=== PATIENT | male | born 1970 | race African-American/Black ===

== ENCOUNTER 2016-09-21 07:27 | Emergency (ER) | payer BC ==
[2016-09-21 07:48] VITALS: BP 166/101
--- NOTE | 2016-09-21 08:04 | UC ---
Hand/Wrist HPI - HPI Summary HPI Summary: PT WAS PARTICIPATING IN A [employer] LAST NIGHT AND HAD TO REPETITIVELY HIT A BUTTON RAPIDLY FOR AN EXTENDED PERIOD OF TIME WITH HIS RIGHT HAND. ALL OF A SUDDEN HAD A SHARP PAIN AND NOW HAS PAIN DIFFUSELY OVER ENTIRE RIGHT HAND. REPORTS IT WAS SWOLLEN LAST NIGHT BUT NOW IS BETTER. HAS FULL ROM. NO NUMBNESS. PT ALSO CONCERNED ABOUT HIS TOENAILS. HAS DM AND IS WONDERING HOW TO TAKE CARE OF HIS NAILS. - History Of Current Complaint Chief Complaint: UCUpperExtremity Stated Complaint: HAND INJURY Time Seen by Provider: 09/21/16 07:51 Hx Obtained From: Patient Onset/Duration: Sudden Onset, Lasting Hours, Still Present - BUT BETTER Severity Initially: Moderate Severity Currently: Moderate Pain Intensity: 8 Pain Scale Used: 0-10 Numeric Character Of Pain: Aching Aggravating Factor(s): Movement Alleviating: Rest Associated Signs And Symptoms: Positive: Swelling. Negative: Redness, Bruising , Fever, Weakness, Numbness/Tingling Related History: Dominant Hand Right - Allergies/Home Medications Allergies/Adverse Reactions: Allergies Allergy/AdvReac Type Severity Reaction Status Date / Time No Known Allergies Allergy Verified 12/02/15 18:04 Home Medications: Home Medications Atorvastatin* [Lipitor 10 MG*] 1 tab PO DAILY 09/21/16 [History Confirmed ] Magnesium 1 tab PO DAILY 09/21/16 [History Confirmed 09/21/16] metFORMIN* [Glucophage 1000 MG TAB *] 1,000 mg PO BID 09/21/16 [History Confirmed 09/21/16] PMH/Surg Hx/FS Hx/Imm Hx Endocrine History Of: Reports: Diabetes Cardiovascular History Of: Reports: Hypertension Respiratory History Of: Denies: COPD, Asthma - Surgical History Surgical History: Yes Surgery Procedure, Year, and Place: TUBES IN EARS CHILD - Family History Known Family History: Negative: Cardiac Disease - Social History Alcohol Use: Occasionally Substance Use Type: None Smoking Status (MU): Never Smoked Tobacco - Immunization History Most Recent Influenza Vaccination: 2016 Most Recent Tetanus Shot: up to date Most Recent Pneumonia Vaccination: never had Review of Systems Constitutional: Negative Skin: Negative Respiratory: Negative Cardiovascular: Negative Gastrointestinal: Negative Musculoskeletal: Arthralgia, Edema All Other Systems Reviewed And Are Negative: Yes Physical Exam Triage Information Reviewed: Yes Appearance: Well-Appearing, No Pain Distress, Well-Nourished Vital Signs: Initial Vital Signs Temp 98.2 F 09/21/16 07:42 Pulse 75 09/21/16 07:42 Resp 18 09/21/16 07:42 BP 166/101 09/21/16 07:42 Pulse Ox 100 09/21/16 07:42 Vital Signs Reviewed: Yes Eyes: Positive: Conjunctiva Clear ENT: Positive: Hearing grossly normal Neck: Positive: Supple Respiratory: Positive: No respiratory distress, No accessory muscle use Cardiovascular: Positive: Pulses Normal - 2+ RADIAL AND DP PULSES Abdomen Description: Positive: Soft Musculoskeletal: Positive: ROM Intact, No Edema, Other: - REPORTS TENDERNESS DIFFUSELY OVER RIGHT HAND. HAS FULL ROM Neurological: Positive: Alert Psychological: Positive: Age Appropriate Behavior Skin: Negative: breakdown - SKIN ON FEET INTACT. NO INGROWN NAILS. NAILS SLIGHTLY LONG WITH ROUGH EDGES. NO TENDERNESS, ERYTHEMA OR DRAINAGE Hand/Wrist Course/Dx - Differential Dx/Diagnosis Provider Diagnoses: 1. RIGHT HAND SPRAIN. 2. NORMAL FEET Discharge - Discharge Plan Condition: Stable Disposition: HOME Patient Education Materials: Hand Sprain (ED) Forms: *Work Release Referrals: No Primary Care Phys,NOPCP [Primary Care Provider] - Additional Instructions: YOUR HAND SHOULD CONTINUE TO IMPROVE OVER THE NEXT WEEK OR SO. REST, ELEVATE. SEEK FOLLOW-UP IF NOT IMPROVING EXPECTED. YOUR FEET LOOK OKAY. NO SKIN BREAKDOWN OR INGROWN NAILS. TRIM THE NAILS ACROSS THE TOP FOR MAINTENANCE. BE SURE NOT TO CATCH YOUR SKIN. FOLLOW-UP WITH YOUR PCP AT [facility] FOR YOUR BLOOD PRESSURE.
== END 2016-09-21 08:21 | disposition home or self-care (01) ==
LOC: UCEAST 07:27
DX: S63.91XA Sprain of unspecified part of right wrist and hand, initial encounter (principal); X50.3XXA Overexertion from repetitive movements, initial encounter; Y93.89 Activity, other specified; Y92.89 Other specified places as the place of occurrence of the external cause; E11.9 Type 2 diabetes mellitus without complications; Z79.84 Long term (current) use of oral hypoglycemic drugs; I10 Essential (primary) hypertension
CPT/HCPCS: 99213; G0463

== ENCOUNTER 2017-01-17 13:36 | Emergency (ER) | payer SELFPAY ==
[2017-01-17 13:52] VITALS: BP 130/75
--- NOTE | 2017-01-17 14:39 | UC ---
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 feels like he needs a few days rest so he can recover from feeling fatigued - History of Current Complaint Chief Complaint: UCGeneralIllness Stated Complaint: NOSE BLEED Time Seen by Provider: 01/17/17 14:32 Hx Obtained From: Patient - Allergy/Home Medications Allergies/Adverse Reactions: Allergies Allergy/AdvReac Type Severity Reaction Status Date / Time No Known Allergies Allergy Verified 01/17/17 13:52 PMH/Surg Hx/FS Hx/Imm Hx Previously Healthy: Yes Endocrine History: Diabetes, Dyslipidemia Cardiovascular History: Hypertension - Surgical History Surgical History: Yes Surgery Procedure, Year, and Place: TUBES IN EARS CHILD - Family History Known Family History: Negative: Cardiac Disease, Diabetes - Social History Occupation: Employed Full-time Lives: With Family Alcohol Use: Occasionally Substance Use Type: None Smoking Status (MU): Never Smoked Tobacco - Immunization History Most Recent Influenza Vaccination: 2016 Most Recent Tetanus Shot: up to date Most Recent Pneumonia Vaccination: never had Review of Systems Constitutional: Negative Skin: Negative Eyes: Negative ENT: Epistaxis Respiratory: Negative Cardiovascular: Negative Gastrointestinal: Negative Genitourinary: Negative Motor: Negative Neurovascular: Negative Musculoskeletal: Negative Neurological: Headache Psychological: Negative All Other Systems Reviewed And Are Negative: Yes Physical Exam Triage Information Reviewed: Yes Appearance: No Pain Distress, Well-Nourished Vital Signs: Initial Vital Signs Temp 98.8 F 01/17/17 13:49 Pulse 95 01/17/17 13:49 Resp 16 01/17/17 13:49 BP 130/75 01/17/17 13:49 Pulse Ox 100 01/17/17 13:49 Vital Signs Reviewed: Yes Eyes: Positive: Conjunctiva Clear ENT: Positive: Pharynx normal, TMs normal, Other: - nares patent no signs of bleeding or signs of trauma. Negative: Nasal congestion, Nasal drainage Neck: Positive: No Lymphadenopathy Respiratory: Positive: Lungs clear, Normal breath sounds, No respiratory distress Cardiovascular: Positive: RRR, No Murmur, Pulses Normal Abdomen Description: Positive: Nontender, Soft Bowel Sounds: Positive: Present Musculoskeletal: Positive: No Edema Neurological: Positive: Alert Psychological Exam: Normal Skin Exam: Normal Course/Dx - Differential Dx - Multi-Symptom Provider Diagnoses: fatigue. HTN- controlled. epistaxis-controlled Discharge - Discharge Plan Condition: Stable Disposition: HOME Patient Education Materials: Hypertension (ED), Nosebleed (ED), Fatigue (ED) Forms: *Work Release Referrals: No Primary Care Phys,NOPCP [Primary Care Provider] - Additional Instructions: Please review your discharge instructions. If your symptoms do not improve please call your primary care provider or return to urgent care.
== END 2017-01-17 14:56 | disposition home or self-care (01) ==
LOC: UCEAST 13:36
DX: R53.83 Other fatigue (principal); R04.0 Epistaxis; E11.9 Type 2 diabetes mellitus without complications; E78.5 Hyperlipidemia, unspecified; I10 Essential (primary) hypertension
CPT/HCPCS: 99211; G0463

== ENCOUNTER 2017-08-01 19:35 | Emergency (ER) | payer BC ==
[2017-08-01 22:43] VITALS: BP 0/0
== END 2017-08-01 20:30 | disposition left against medical advice (07) ==
LOC: ED 19:35
DX: R51 Headache (principal); Z53.21 Procedure and treatment not carried out due to patient leaving prior to being seen by health care provider
CPT/HCPCS: 99281

== ENCOUNTER 2017-09-29 06:02 | Emergency (ER) | payer BC ==
[2017-09-29] MEDS ORDERED: Ibuprofen TAB* 800 MG PO ONE (06:25)
[2017-09-29] MEDS ORDERED: predniSONE TAB* 20 MG PO ONE (06:50)
--- NOTE | 2017-09-29 06:53 | ED ---
Melida Donaldson Rebecca, scribed for Ryan Treviño MD on 09/29/17 at 0614 . Complex/Multi-Sys Presentation - HPI Summary HPI Summary: Pt is a 47 y/o M who presents to ED c/o throat pain. Sx began 2 days ago, Monday night, and pain is currently severe, ranked 8/10. Denies fever. Prior strep infection a few years ago. - History Of Current Complaint Chief Complaint: EDThroatPain Time Seen by Provider: 09/29/17 06:11 Hx Obtained From: Patient Onset/Duration: Lasting Days - 2 days, Still Present Severity Currently: Severe - 8/10 Location: Pain At: - Throat Aggravating Factor(s): Nothing. Alleviating Factor(s): Nothing. Associated Signs And Symptoms: Positive: Other - Throat pain. Negative: Fever - Allergies/Home Medications Allergies/Adverse Reactions: Allergies Allergy/AdvReac Type Severity Reaction Status Date / Time No Known Allergies Allergy Verified 09/29/17 06:07 PMH/Surg Hx/FS Hx/Imm Hx Endocrine/Hematology History: Reports: Hx Diabetes Cardiovascular History: Reports: Hx Hypertension Respiratory History: Denies: Hx Asthma, Hx Chronic Obstructive Pulmonary Disease (COPD) - Surgical History Surgery Procedure, Year, and Place: TUBES IN EARS CHILD Infectious Disease History: No Infectious Disease History: Denies: Traveled Outside the [place] in Last 30 Days - Family History Known Family History: Negative: Cardiac Disease, Diabetes - Social History Alcohol Use: Occasionally Substance Use Type: Reports: None Smoking Status (MU): Never Smoked Tobacco Review of Systems Negative: Fever Positive: Sore Throat All Other Systems Reviewed And Are Negative: Yes Physical Exam - Summary Physical Exam Summary: VITAL SIGNS: Reviewed. GENERAL: ~Patient is a well-developed and nourished male who is lying comfortable in the stretcher. Patient is not in any acute respiratory distress. HEAD AND FACE: No signs of trauma. No ecchymosis, hematomas or skull depressions. No sinus tenderness. EYES: PERRLA, EOMI x 2, No injected conjunctiva, no nystagmus. EARS: Hearing grossly intact. Ear canals and tympanic membranes are within normal limits. MOUTH: Pharyngeal hyperemia with no exudate. NECK: Supple, trachea is midline, no adenopathy, no JVD, no carotid bruit, no c- spine tenderness, neck with full ROM. CHEST: Symmetric, no tenderness at palpation LUNGS: Clear to auscultation bilaterally. No wheezing or crackles. CVS: Regular rate and rhythm, S1 and S2 present, no murmurs or gallops appreciated. EXTREMITIES: FROM in all major joints, no edema, no cyanosis or clubbing. NEURO: Alert and oriented x 3. No acute neurological deficits. Speech is normal and follows commands. SKIN: Dry and warm Triage Information Reviewed: Yes Vital Signs On Initial Exam: Initial Vitals Temp Pulse Resp BP Pulse Ox 98.6 F 105 16 167/104 97 09/29/17 06:03 09/29/17 06:03 09/29/17 06:03 09/29/17 06:03 09/29/17 06:03 Vital Signs Reviewed: Yes Diagnostics - Vital Signs Vital Signs Temp Pulse Resp BP Pulse Ox 09/29/17 06:03 98.6 F 105 16 167/104 97 - Laboratory Lab Statement: Any lab studies that have been ordered have been reviewed, and results considered in the medical decision making process. Complex Multi-Symp Course/Dx Assessment/Plan: Pt is a 47 y/o M who presents to ED c/o throat pain. Sx began 2 days ago, Monday night, and pain is currently severe, ranked 8/10. Denies fever. Prior strep infection a few years ago. Group A rapid strep positive. In the ED course, pt received Ibuprofen. Pt will be D/C to home with Dx of strep and Rx for Augmentin and Motrin. He understands and agrees. - Diagnoses Provider Diagnoses: Group A streptococcal infection Discharge - Sign-Out/Discharge Documenting (check all that apply): Discharge - Discharge - Discharge Plan Condition: Stable Disposition: HOME Prescriptions: Amoxicillin/Clavulanate TAB* [Augmentin TAB 875*] 875 mg PO BID #20 tab Ibuprofen TAB* [Motrin TAB* 800 MG] 800 mg PO Q6H PRN #30 tab PRN Reason: Pain Patient Education Materials: Strep Throat (ED) Referrals: [facility] [Outside] - 3 Days Additional Instructions: RETURN TO EMERGENCY DEPARTMENT FOR ANY NEW OR WORSENING SYMPTOMS The documentation as recorded by the Melida irby Rebecca accurately reflects the service I personally performed and the decisions made by , Ryan Treviño MD.
[2017-09-29 07:31] VITALS: BP 162/98
[2017-09-29] MEDS ORDERED: Amoxicillin/Clavulanate TAB* 875 MG PO SCH (09:00)
== END 2017-09-29 07:30 | disposition home or self-care (01) ==
LOC: ED 06:02
DX: J02.0 Streptococcal pharyngitis (principal)
CPT/HCPCS: 87651; 99283; A9270-GY; J7512

== ENCOUNTER 2019-06-19 05:04 | Emergency (ER) | payer BC ==
--- NOTE | 2019-06-19 05:22 | ED ---
Complex/Multi-Sys Presentation - HPI Summary HPI Summary: 49 y/o male presented to [facility] complaining of difficulty breathing after waking up. He claims to have fallen asleep feeling fine while watching sports and woke up with swelling that he felt made breathing difficult. He states that he is thirsty and feels like he can't swallow. He feels no pain and has no sore throat. Pt has a Hx of diabetes and HTN. Medications reviewed. - History Of Current Complaint Chief Complaint: EDThroatPain Time Seen by Provider: 06/19/19 05:10 Hx Obtained From: Patient Onset/Duration: Sudden Onset Timing: Constant Associated Signs And Symptoms: Positive: SOB, Edema, Other - thirst Related History: Other - reaction to medication - Allergies/Home Medications Allergies/Adverse Reactions: Allergies Allergy/AdvReac Type Severity Reaction Status Date / Time No Known Allergies Allergy Verified 06/19/19 05:08 PMH/Surg Hx/FS Hx/Imm Hx Endocrine/Hematology History: Reports: Hx Diabetes Cardiovascular History: Reports: Hx Hypertension Respiratory History: Denies: Hx Asthma, Hx Chronic Obstructive Pulmonary Disease (COPD) - Surgical History Surgery Procedure, Year, and Place: TUBES IN EARS CHILD Infectious Disease History: No Infectious Disease History: Denies: Traveled Outside the [place] in Last 30 Days - Family History Known Family History: Negative: Cardiac Disease, Diabetes - Social History Alcohol Use: Occasionally Substance Use Type: Reports: None Smoking Status (MU): Never Smoked Tobacco Review of Systems Positive: Other - difficulty swallowing. Negative: Sore Throat Positive: Other - difficulty breathing. Negative: Cough All Other Systems Reviewed And Are Negative: Yes Physical Exam - Summary Physical Exam Summary: Appearance: Well-appearing, Well-nourished, lying in bed comfortably Skin: Warm, dry, no obvious rash Eyes: sclera anicteric, no conjunctival pallor ENT: mucous membranes moist; swollen, boggy appearing uvula, tongue not swollen , no apparent airway impingement Neck: Supple, nontender Respiratory: Clear to auscultation, no signs of respiratory distress Cardiovascular: Normal S1, S2. No murmurs. Normal distal pulses in tibial and radial bilaterally. Abdomen: Soft, nontender, normal active bowel sounds present Musculoskeletal: Normal, Strength/ROM Intact Neurological: A&Ox3, awake and alert, mentation is normal, speech is fluent and appropriate Psychiatric: affect is normal, does not appear anxious or depressed Triage Information Reviewed: Yes Vital Signs On Initial Exam: Initial Vitals Temp Pulse Resp BP Pulse Ox 98.2 F 111 22 181/106 96 06/19/19 05:05 06/19/19 05:05 06/19/19 05:05 06/19/19 05:05 06/19/19 05:05 Vital Signs Reviewed: Yes Procedures - Sedation Patient Received Moderate/Deep Sedation with Procedure: No Diagnostics - Vital Signs Vital Signs Temp Pulse Resp BP Pulse Ox 06/19/19 05:05 98.2 F 111 22 181/106 96 - Laboratory Result Diagrams: 06/19/19 05:42 06/19/19 05:42 Lab Statement: Any lab studies that have been ordered have been reviewed, and results considered in the medical decision making process. Complex Multi-Symp Course/Dx Course Of Treatment: 49 y/o male presented to [facility] complaining of difficulty breathing after waking up. He claims to have fallen asleep feeling fine while watching sports and woke up with swelling that he felt made breathing difficult. He states that he is thirsty and feels like he can't swallow. He feels no pain and has no sore throat. Exam showed uvular swelling but no apparent impingement of the airway. Bloodwork showed Hgb L, Hct L, Na L, K L, BUN/creatinine ratio H, and glucose H. Pt was diagnosed with angioedema. Pt is signed out to Dr. Diaz at 0700 shift change pending discharge after plasma. - Diagnoses Provider Diagnoses: Angioedema Discharge ED - Sign-Out/Discharge Documenting (check all that apply): Sign-Out Patient Signing out patient TO: Jim Diaz - Pt is signed out to Dr. Diaz at 0700 shift change pending discharge after plasma. Receiving patient FROM: Storm Brewster - Discharge Plan Condition: Good Disposition: HOME Prescriptions: diPHENhydraMINE PO* [Benadryl PO 25 MG TAB*] 25 mg PO TID PRN #30 tab PRN Reason: Allergy Symptoms Famotidine TAB* [Pepcid 20 MG TAB*] 20 mg PO DAILY #10 tab predniSONE [Prednisone 20 MG TAB] 20 mg PO DAILY #10 tablet Patient Education Materials: Angioedema (ED) Forms: *Work Release Referrals: Navdeep Rushing MD [Primary Care Provider] - Additional Instructions: Check your medication and do not take any more lisinopril. The swelling should completely resolve within a day or two. You will need to check in with your doctor within a week to see about a different blood pressure medication. - Billing Disposition and Condition Condition: GOOD Disposition: Home - Attestation Statements Document Initiated by dE: Yes Documenting Scribe: Akash Bonilla Provider For Whom Ed is Documenting (Include Credential): Storm Brewster MD Scribe Attestation: Akash Donaldson, adalidibed for Storm Brewster MD on 06/21/19 at 0112. Scribe Documentation Reviewed: Yes Provider Attestation: The documentation as recorded by the Akash irby accurately reflects the service I personally performed and the decisions made by Storm mars MD Status of Scribe Document: Viewed
[2019-06-19] MEDS ORDERED: Tranexamic Acid 1,000 MG/10 ML 1,000 MG in NS 0.9% 50 ML* 50 ML IV ONE (05:27)
--- OUTSIDE RECORDS SUMMARY | 2019-06-19 05:44 | XMS REPORT | Continuity of Care Document ---
:1970 External Reference #:[id number] Author Name DL Marcelino Address [address] [place] [address] Problems Description No Information Available Social History Type Date Description Comments Sex Unknown Allergies, Adverse Reactions, Alerts Active Allergies Reaction Severity Comments Date HCTZ Hypomagnesemia 05/2702/15/2019 Medications Active Medications SIG Qnty Indications Ordering Provider Date Amoxicillin 1 tab by mouth 20caps K08.89 DL Marcelino 04/25/2019 500mg twice a day Capsules Metformin HCL Oral; Take 1 180tabs Unknown 02/01/2019 1000mg Tablet By Mouth Tablets Twice A Day Metoprolol Succinate Oral; Take 1 90tabs Unknown 10/30/2018 ER Tablet By Mouth 25mg Tablets ER 24HR Every Day Nifedipine ER Osmotic Oral; Take 2 180tabs Unknown 10/30/2018 Release Tablets By Mouth 60mg Tablets ER Every Day 24HR Lisinopril Oral; Take 1 90tabs Unknown 07/26/2018 40mg Tablets Tablet By Mouth Every Day Atorvastatin Calcium Oral; Take 1 90tabs Unknown 10/02/2017 Tablet By Mouth 20mg Tablets Every Day Automatic Blood 1 N/A Unknown 01/14/2016 Pressure Monitor Device Aspirin 1 daily Oral 90tabs Unknown 05/18/[address] David Neff N/A Unknown 05/06/2015 Lancets Fine 30G 30G Misc Onetouch Ultra Blue In vitro Unknown 05/06/2015 Strips Onetouch Ultra Mini N/A Unknown 05/06/2015 w/Device Kit Medications Administered in Office Medication SIG Qnty Indications Ordering Provider Date TB Intradermal Test Unknown 04/06/2016 Injection Immunizations CPT Code Status Date Vaccine Lot # [id number] Given 07/06/2018 Hepatitis B >=20 yrs, Energix or Recombivax 97054 Given 07/06/2018 Influenza Virus Vaccine, Quadrivalent, Split, Im Use 0.25ML 46291 Given 07/06/2018 Influenza Virus Vaccine, Quadrivalent, Split, Im Use 0.25ML 81132 Given 07/06/2018 Influenza Virus Vaccine, Quadrivalent, Split, Im Use 0.25ML 33989 Given 07/06/2018 Flu < 65 years 61507 Given 07/06/2018 Influenza Virus Vaccine, Quadrivalent, Split, Preservative Free 85199 Given 07/06/2018 Flumist 17515 Given 07/06/2018 Flu High Dose 60170 Given 07/06/2018 Influenza Virus Vaccine, Split, Preserv Free, Intradermal Use 01283 Given 10/13/2015 Pneumovax - for >=2years - PPSV23 99564 Given 07/28/2015 Flumist 85294 Given 07/28/2015 Flu High Dose 59499 Given 07/28/2015 Influenza Virus Vaccine, Quadrivalent, Split, Preservative Free 32619 Given 07/28/2015 Flu < 65 years 61619 Given 07/28/2015 Influenza Virus Vaccine, Quadrivalent, Split Virus, Im Use 0.5ML 27364 Given 07/28/2015 Tdap - Boostrix/Adacel 47369 Refused 08/10/2017 Influenza Virus Vaccine, Quadrivalent, Split, Im Use 0.25ML 17138 Refused 07/14/2017 Influenza Virus Vaccine, Quadrivalent, Split, Im Use 0.25ML 78953 Refused 07/11/2017 Influenza Virus Vaccine, Quadrivalent, Split, Im Use 0.25ML [id number] Refused 06/14/2017 Influenza Virus Vaccine, Quadrivalent, Split, Im Use 0.25ML 88834 Refused 06/08/2017 Influenza Virus Vaccine, Quadrivalent, Split, Im Use 0.25ML Vital Signs Date Vital Result Comment 04/25/2019 12:05pm BP Systolic 144 mmHg BP Diastolic 98 mmHg Height 67.5 inches 5'7.50" Weight 232.00 lb Heart Rate 81 /min Body Temperature 98.0 F O2 % BldC Oximetry 99 % BMI (Body Mass Index) 35.8 kg/m2 09/20/2018 2:27pm BP Systolic 122 mmHg Height 66.50 inches 5'6.50" Weight 211.00 lb Heart Rate 84 /min Body Temperature 97.8 F O2 % BldC Oximetry 99 % BMI (Body Mass Index) 33.55 kg/m2 Results Description No Information Available Procedures Description No Information Available Medical Devices Description No Information Available Encounters Type Date Location Provider Dx Diagnosis Office Visit 04/25/2019 12:00p [facility] DL Marcelino K08.89 Other specified disorders of teeth and supporting structures Assessments Date Code Description Provider 04/25/2019 K08.89 Other specified disorders of teeth and supporting DL Marcelino structures Plan of Treatment Future Appointment(s):05/08/2019 9:15 am - DL Villa at [facility] - DL MarcelinoK08.89 Other specified disorders of teeth and supporting structuresNew Medication:Amoxicillin 500 mg - 1 tab by mouth twice a dayComments :Rec. mouth rinses, water pick and visit to the Dentist as disc.Tylenol PRN for pain. If no improvement could try NSAIDs. Antibiotic Rx SE reviewed. Return to office if worsening or no improvement with above. Functional Status Description No Information Available Mental Status Description No Information Available Referrals Description No Information Available
[2019-06-19 05:47] LABS: ABS Basophils 0.1 10^3/ul (0-0.2); ABS Eosinophils 0.1 10^3/ul (0-0.6); ABS Lymphocytes 3.5 10^3/ul (1.0-4.8); ABS Monocytes 0.7 10^3/ul (0-0.8); ABS Neutrophils 4.2 10^3/ul (1.5-7.7); Eosinophil % 1.7 %; Hematocrit 40 % (42-52); Hemoglobin 13.5 g/dL (14.0-18.0); Mean Corpuscular HGB Conc 34 g/dL (31-36); Mean Corpuscular Hemoglobin 29 pg (27-31); Mean Corpuscular Volume 83 fL (80-94); Mean Platelet Volume 7.6 fL (7.4-10.4); Platelet Count 338 10^3/uL (150-450); Red Blood Count 4.75 10^6 /uL (4.18-5.48); Red Cell Distribution Width 14 % (10-15); White Blood Count 8.6 10^3/uL (3.5-10.8)
[2019-06-19 06:04] LABS: Albumin 3.9 g/dL (3.2-5.2); Albumin/Globulin Ratio 1.3 (1-3); BUN/Creatinine Ratio 20.8 (8-20); EGFR African American 129.9 (>60); EGFR Non-African American 107.4 (>60); Globulin 2.9 g/dL (2-4); Potassium 3.4 mmol/L (3.5-5.0); Total Bilirubin 0.5 mg/dL (0.2-1.0); Total Protein 6.8 g/dL (6.4-8.9)
--- NOTE | 2019-06-19 07:10 | ED ---
Progress - Progress Note Progress Note: Patient is a sign-out at 07:00 on 06/19/[address] Storm Brewster MD to Dr. Jim Diaz MD at shift change, pending further workup and disposition. At 07:54, patient is still concerned about his throat swelling and receiving a plasma transfusion. The risks and benefits of transfusion was discussed with the patient. At this time, patient declines the transfusion. His throat has improved since initial onset of swelling. Patient will be discharged with a diagnosis of angioedema. Follow up with PCP within 3 days. Re-Evaluation - Re-Evaluation First Eval Re-Evaluation Time: 07:54 Change: Improved Comment: At 07:54, patient is still concerned about his throat swelling and receiving a plasma transfusion. The risks and benefits of transfusion was discussed with the patient. At this time, patient declines the transfusion. His throat has improved since initial onset of swelling. Course/Dx - Course Course Of Treatment: This patient was signed out from Dr. Posada at shift change. He reports that the patient has a flareup of his angioedema. Dr. Posada ordered FFP and tranexamic acid. Patient declined plasma transfusion. The patient reports that at this time he is feeling better and he wants to be discharged home. Therefore, since the patient doesn't have any airway compromise , any hoarse or muffled voice, and because he is feeling better, he will be discharged home with a prescription for Benadryl, prednisone and Pepcid. He declined an EpiPen. Patient is hemodynamically stable. - Diagnoses Provider Diagnoses: Angioedema Discharge ED - Sign-Out/Discharge Documenting (check all that apply): Patient Departure - Discharge, Receiving Sign-Out Receiving patient FROM: Storm Brewster - Patient is a sign-out at 07:00 on 06/[address] Storm Brewster MD to Dr. Jim Diaz MD at shift change, pending further workup and disposition. - Discharge Plan Condition: Good Disposition: HOME Prescriptions: diPHENhydraMINE PO* [Benadryl PO 25 MG TAB*] 25 mg PO TID PRN #30 tab PRN Reason: Allergy Symptoms Famotidine TAB* [Pepcid 20 MG TAB*] 20 mg PO DAILY #10 tab predniSONE [Prednisone 20 MG TAB] 20 mg PO DAILY #10 tablet Patient Education Materials: Angioedema (ED) Forms: *Work Release Referrals: Navdeep Rushing MD [Primary Care Provider] - Additional Instructions: Check your medication and do not take any more lisinopril. The swelling should completely resolve within a day or two. You will need to check in with your doctor within a week to see about a different blood pressure medication. - Billing Disposition and Condition Condition: GOOD Disposition: Home - Attestation Statements Document Initiated by Ibethibe: Yes Documenting Scribe: Ivana Jackson Provider For Whom dE is Documenting (Include Credential): Jim Diaz MD Scribe Attestation: Ivana Donaldson, scribed for Jim Diaz MD on 06/19/19 at 1832. Scribe Documentation Reviewed: Yes Provider Attestation: The documentation as recorded by the Ivana irby accurately reflects the service I personally performed and the decisions made by , Jim Diaz MD Status of Scribe Document: Viewed
[2019-06-19 09:00] VITALS: BP 139/100
== END 2019-06-19 08:44 | disposition home or self-care (01) ==
LOC: ED 05:04
DX: T78.3XXA Angioneurotic edema, initial encounter (principal); E11.9 Type 2 diabetes mellitus without complications; I10 Essential (primary) hypertension
CPT/HCPCS: 36415; 80053; 85025; 86850; 86900; 86901; 96374; 99282

== ENCOUNTER 2019-08-20 11:03 | Emergency (ER) | payer BC ==
--- OUTSIDE RECORDS SUMMARY | 2019-08-20 11:18 | XMS REPORT | Continuity of Care Document ---
:1970 External Reference #:[id number] Author Name Hilda Mcdowell DO Address [address] [place] [address] Problems Active Problems Provider Date Essential hypertension Onset: 09/20/2018 Type 2 diabetes mellitus without complication Onset: 07/06/2018 Social History Type Date Description Comments Sex Unknown Tobacco Use Start: Unknown Patient has never smoked Smoking Status Reviewed: 07/12/19 Patient has never smoked Allergies, Adverse Reactions, Alerts Active Allergies Reaction Severity Comments Date HCTZ Hypomagnesemia 05/2702/15/2019 Lisinopril Swelling throat Severe 06/20/2019 Medications Active Medications SIG Qnty Indications Ordering Provider Date Epipen 2-[place] use one as 2units Hilda Mcdowell, 06/20/2019 needed, as DO 0.3mg/0.3ML Solution directed Auto-Inject Losartan Potassium 1 tabs daily 90tabs Hilda Alvarezbulmaro, 06/20/2019 50mg oral DO Tablets Metformin HCL Oral; Take 1 180tabs Unknown 02/01/2019 1000mg Tablet By Mouth Tablets Twice A Day Metoprolol Succinate Oral; Take 1 90tabs Unknown 10/30/2018 ER Tablet By Mouth 25mg Tablets ER 24HR Every Day Nifedipine ER Osmotic oral; take 2 180tabs Hilda Mcdowell, 10/30/2018 Release tablets by mouth DO 60mg Tablets ER every day 24HR Atorvastatin Calcium Oral; Take 1 90tabs Unknown 10/02/2017 Tablet By Mouth 20mg Tablets Every Day Automatic Blood 1 N/A Unknown 01/14/2016 Pressure Monitor Device Aspirin 1 daily Oral 90tabs Unknown 05/18/[address] David Neff N/A Unknown 05/06/2015 Lancets Fine 30G 30G Misc Onetouch Ultra Blue In vitro Unknown 05/06/2015 Strips Onetouch Ultra Mini N/A Unknown 05/06/2015 w/Device Kit Glipizide 1 by mouth every Unknown 5mg Tablets day [facility] Allergy Relief Unknown 25mg Capsules Famotidine Unknown 20mg Tablets Prednisone Unknown 10mg Tablets History Medications Amoxicillin 1 tab by mouth 20caps K08.89 Lula Whitley, [employer] 04/25/2019 - 500mg twice a day 06/19/2019 Capsules Medications Administered in Office Medication SIG Qnty Indications Ordering Provider Date TB Intradermal Test Unknown 04/06/2016 Injection Immunizations CPT Code Status Date Vaccine Lot # [id number] Given 07/06/2018 Hepatitis B >=20 yrs, Energix or Recombivax 25136 Given 07/06/2018 Flu < 65 years 95038 Given 10/13/2015 Pneumovax - for >=2years - PPSV23 76306 Given 07/28/2015 Tdap - Boostrix/Adacel 60169 Given 07/28/2015 Flu < 65 years 54265 Refused 08/10/2017 Influenza Virus Vaccine, Quadrivalent, Split, Im Use 0.25ML [id number] Refused 07/14/2017 Influenza Virus Vaccine, Quadrivalent, Split, Im Use 0.25ML [id number] Refused 07/11/2017 Influenza Virus Vaccine, Quadrivalent, Split, Im Use 0.25ML 38904 Refused 06/14/2017 Influenza Virus Vaccine, Quadrivalent, Split, Im Use 0.25ML [id number] Refused 06/08/2017 Influenza Virus Vaccine, Quadrivalent, Split, Im Use 0.25ML Vital Signs Date Vital Result Comment 07/12/2019 12:06pm BP Systolic 142 mmHg BP Diastolic 84 mmHg Heart Rate 93 /min Body Temperature 98.5 F O2 % BldC Oximetry 99 % 06/21/2019 2:13pm BP Systolic 146 mmHg BP Diastolic 90 mmHg BP Systolic Recheck 132 mmHg BP Diastolic Recheck 86 mmHg Results Test Acquired Date Facility Test Result H/L Range Note Abo/RH Type 06/19/2019 [facility] Patient Blood O Positive [address] [place] [address] [phone] CBC Auto 06/19/2019 [facility] White Blood 8.6 10^3/uL Normal 3.5-10.[address] [place] [address] [phone] Red Blood Count 4.75 10^6/uL Normal 4.18-5.48 Hemoglobin 13.5 g/dL Low 14.0-18.0 Hematocrit 40 % Low 42-52 Mean Corpuscular Volume 83 fL Normal 80-94 Mean Corpuscular Hemoglobin 29 pg Normal 27-31 Mean Corpuscular HGB Conc 34 g/dL Normal 31-36 Red Cell Distribution Width 14 % Normal 10-15 Platelet Count 338 10^3/uL Normal 150-450 Mean Platelet Volume 7.6 fL Normal 7.4-10.4 Abs Neutrophils 4.2 10^3/uL Normal 1.5-7.7 Abs Lymphocytes 3.5 10^3/uL Normal 1.0-4.8 Abs Monocytes 0.7 10^3/uL Normal 0-0.8 Abs Eosinophils 0.1 10^3/uL Normal 0-0.6 Abs Basophils 0.1 10^3/uL Normal 0-0.2 Abs Nucleated RBC 0.0 10^3/uL Granulocyte % 48.5 % Lymphocyte % 41.0 % Monocyte % 7.7 % Eosinophil % 1.7 % Basophil % 1.1 % Nucleated Red Blood Cells % 0.0 Comp Metabolic Panel 06/19/2019 [facility] Sodium 134 mmol/L Low 135-[address] [place] [address] [phone] Potassium 3.4 mmol/L Low 3.5-5.0 Chloride 101 mmol/L Normal 101-111 Co2 Carbon Dioxide 24 mmol/L Normal 22-32 Anion Gap 9 mmol/L Normal 2-11 Glucose 260 mg/dL High 70-100 Blood Urea Nitrogen 16 mg/dL Normal 6-24 Creatinine 0.77 mg/dL Normal 0.67-1.17 BUN/Creatinine Ratio 20.8 High 8-20 Calcium 9.0 mg/dL Normal 8.6-10.3 Total Protein 6.8 g/dL Normal 6.4-8.9 Albumin 3.9 g/dL Normal 3.2-5.2 Globulin 2.9 g/dL Normal 2-4 Albumin/Globulin Ratio 1.3 Normal 1-3 Total Bilirubin 0.50 mg/dL Normal 0.2-1.0 Alkaline Phosphatase 48 U/L Normal 34-104 Alt 37 U/L Normal 7-52 Ast 16 U/L Normal 13-39 Egfr Non- 107.4 >60 Egfr 129.9 >60 2 Type & Screen 06/19/2019 [facility] Patient Blood Type O Positive [address] [place] [address] [phone] Antibody Screen NEGATIVE 1 SOB PER PT 2 Because ethnic data is not always readily available, this report includes an eGFR for both -Americans and non- Americans. The National Kidney Disease Education Program (NKDEP) does not endorse the use of the MDRD equation for patients that are not between the ages of 18 and 70, are , have extremes of body size, muscle mass, or nutritional status, or are non- or non-. According to the National Kidney Foundation, irrespective of diagnosis, the stage of the disease is based on the level of kidney function: Stage Description GFR(mL/min/1.73 m(2)) 1 Kidney damage with normal or decreased GFR 90 2 Kidney damage with mild decrease in GFR 60-89 3 Moderate decrease in GFR 30-59 4 Severe decrease in GFR 15-29 5 Kidney failure <15 (or dialysis) Procedures Description No Information Available Medical Devices Description No Information Available Encounters Type Date Location Provider Dx Diagnosis Office Visit 07/12/2019 [facility] Hilda Mcdowell, DO I10 Essential ( primary) 12:00p hypertension D64.9 Anemia, unspecified Office Visit 06/21/2019 2:15p [facility] Nurse I10 Essential (primary) hypertension Office Visit 06/20/2019 9:30a [facility] Hilda T78.3xxD Angioneurotic edema, Fern[place]ow, DO subsequent encounter I10 Essential (primary) hypertension D64.9 Anemia, unspecified Office Visit 04/25/2019 12:00p [facility] Lula Whitley, [employer] OFFICER K08.89 Other specified disorders of teeth and supporting structures Assessments Date Code Description Provider 07/12/2019 I10 Essential (primary) hypertension Hilda Mcdowell, DO 07/12/2019 D64.9 Anemia, unspecified Hilda Kimw, DO 06/21/2019 I10 Essential (primary) hypertension Nurse 06/20/2019 T78.3xxD Angioneurotic edema, subsequent encounter Hilda Mcdowell, DO 06/20/2019 I10 Essential (primary) hypertension Hilda Alvarezw, DO 06/20/2019 D64.9 Anemia, unspecified Hilda Mcdowell, DO 04/25/2019 K08.89 Other specified disorders of teeth and DL Marcelino supporting structures Plan of Treatment Future Appointment(s):10/11/2019 11:45 am - Hilda Karmikayla, DO at [facility] - Hilda Isaacsmikayla, DOI10 Essential (primary) hypertensionComments: Better controlled with the addition of LosartanWe could push the dose even further but he is also making lifestyle changes and so we will wait a few months to see how things go Encouraged continue healthy lifestyle changes3 month follow up, sooner if [id number] Anemia, unspecifiedComments:Very mild anemia - present back in 2016 as well No symptomsWill recheck in a month and if remains low, then we need to pursue further work up - he will be due for colonoscopy this summer, so may consider sending him early Functional Status Description No Information Available Mental Status Description No Information Available Referrals Description No Information Available
[2019-08-20 12:11] LABS: ABS Basophils 0.1 10^3/ul (0-0.2); ABS Eosinophils 0.1 10^3/ul (0-0.6); ABS Lymphocytes 3.3 10^3/ul (1.0-4.8); ABS Monocytes 0.7 10^3/ul (0-0.8); ABS Neutrophils 5.3 10^3/ul (1.5-7.7); Eosinophil % 1.1 %; Hematocrit 40 % (42-52); Hemoglobin 13.7 g/dL (14.0-18.0); Lymphocyte % 35.1 %; Mean Corpuscular HGB Conc 34 g/dL (31-36); Mean Corpuscular Hemoglobin 28 pg (27-31); Mean Corpuscular Volume 81 fL (80-94); Nucleated Red Blood Cells % 0.1; Platelet Count 374 10^3/uL (150-450); Red Blood Count 4.91 10^6 /uL (4.18-5.48); Red Cell Distribution Width 13 % (10-15); White Blood Count 9.5 10^3/uL (3.5-10.8)
[2019-08-20 12:23] LABS: Albumin 4.2 g/dL (3.2-5.2); Albumin/Globulin Ratio 1.4 (1-3); BUN/Creatinine Ratio 23.2 (8-20); Calcium 9.7 mg/dL (8.6-10.3); EGFR African American 120.8 (>60); EGFR Non-African American 99.9 (>60); Globulin 3.1 g/dL (2-4); Total Bilirubin 0.4 mg/dL (0.2-1.0); Total Protein 7.3 g/dL (6.4-8.9)
[2019-08-20] MEDS ORDERED: amLODIPine TAB* 5 MG PO ONE (12:40)
[2019-08-20 12:56] LABS: Potassium 4.2 mmol/L (3.5-5.0)
--- NOTE | 2019-08-20 12:57 | ED ---
Hypertension - HPI Summary HPI Summary: 49 year old M presenting to [facility] with a chief complaint of hypertension since earlier today. Patient reports epistaxis earlier today and that when his blood pressure was checked it was elevated. The patient rates the pain 0/10 in severity. Symptoms aggravated by nothing. Symptoms alleviated by nothing. The patient states that he had not taken his blood pressure medication for two days and was eating a lot of salt. He took his Metoprolol today at 07:30. Medication list reviewed. Allergy list reviewed. - History of Current Complaint Chief Complaint: EDHypertension Stated Complaint: HIGH BLOOD PRESSURE PER PT Time Seen by Provider: 08/20/19 12:39 Hx Obtained From: Patient Timing: Constant Aggravating Factor(s): Nothing Alleviating Factor(s): Nothing Associated Signs & Symptoms: Other: - Epistaxis - Allergies/Home Medications Allergies/Adverse Reactions: Allergies Allergy/AdvReac Type Severity Reaction Status Date / Time No Known Allergies Allergy Verified 06/19/19 05:08 Home Medications: Home Medications Hydrochlorothiazide TAB* [Hydrodiuril TAB*] 25 mg PO DAILY 05/15/12 [History Confirmed 09/29/17] Atorvastatin* [Lipitor 10 MG*] 1 tab PO DAILY 09/21/16 [History Confirmed ] Magnesium 1 tab PO DAILY 09/21/16 [History Confirmed 09/29/17] metFORMIN* [Glucophage 1000 MG TAB *] 1,000 mg PO BID #14 tab 04/22/17 [Rx Confirmed 09/29/17] Amoxicillin/Clavulanate TAB* [Augmentin TAB 875*] 875 mg PO BID #20 tab [Rx] Ibuprofen TAB* [Motrin TAB* 800 MG] 800 mg PO Q6H PRN #30 tab 09/29/17 [Rx] Famotidine TAB* [Pepcid 20 MG TAB*] 20 mg PO DAILY #10 tab 06/19/19 [Rx] diPHENhydraMINE PO* [Benadryl PO 25 MG TAB*] 25 mg PO TID PRN #30 tab 06/19/19 [ Rx] predniSONE [Prednisone 20 MG TAB] 20 mg PO DAILY #10 tablet 06/19/19 [Rx] PMH/Surg Hx/FS Hx/Imm Hx Endocrine/Hematology History: Reports: Hx Diabetes Cardiovascular History: Reports: Hx Hypertension Respiratory History: Denies: Hx Asthma, Hx Chronic Obstructive Pulmonary Disease (COPD) - Surgical History Surgery Procedure, Year, and Place: TUBES IN EARS CHILD Infectious Disease History: No Infectious Disease History: Denies: Traveled Outside the [place] in Last 30 Days - Family History Known Family History: Negative: Cardiac Disease, Diabetes - Social History Alcohol Use: Occasionally Substance Use Type: Reports: None Smoking Status (MU): Never Smoked Tobacco Review of Systems Positive: Epistaxis Positive: Other - Hypertension All Other Systems Reviewed And Are Negative: Yes Physical Exam - Summary Physical Exam Summary: Constitutional: Well-developed, Well-nourished, Alert. (-) Distressed Skin: Warm, Dry HENT: Normocephalic; Atraumatic Eyes: Conjunctiva normal Neck: Musculoskeletal ROM normal neck. (-) JVD, (-) Stridor, (-) Nuchal rigidity Cardio: Rhythm regular, rate normal, Heart sounds normal; Intact distal pulses; Radial pulses are 2+ and symmetric. (-) Murmur Pulmonary/Chest wall: Effort normal. (-) Respiratory distress, (-) Wheezes, (-) Rales Abd: Soft, (-) tenderness, (-) Distension, (-) Guarding, (-) Rebound Musculoskeletal: (-) Edema Lymph: (-) Cervical adenopathy Neuro: Alert, Oriented x3 Psych: Mood and affect Normal Triage Information Reviewed: Yes Vital Signs On Initial Exam: Initial Vitals Temp Pulse Resp BP Pulse Ox 98.1 F 90 16 201/111 98 08/20/19 11:05 08/20/19 11:05 08/20/19 11:05 08/20/19 11:05 08/20/19 11:05 Vital Signs Reviewed: Yes Procedures - Sedation Patient Received Moderate/Deep Sedation with Procedure: No Diagnostics - Vital Signs Vital Signs Temp Pulse Resp BP Pulse Ox 08/20/19 12:00 98.0 F 78 16 178/111 99 08/20/19 11:05 98.1 F 90 16 201/111 98 - Laboratory Lab Results: Lab Results 08/20/19 08/20/19 Range/Units 11:51 11:51 WBC 9.5 (3.5-10.8) 10^3/uL RBC 4.91 (4.18-5.48) 10^6 /uL Hgb 13.7 L (14.0-18.0) g/dL Hct 40 L (42-52) % MCV 81 (80-94) fL MCH 28 (27-31) pg MCHC 34 (31-36) g/dL RDW 13 (10-15) % Plt Count 374 (150-450) 10^3/uL MPV 8.0 (7.4-10.4) fL Neut % (Auto) 56.0 % Lymph % (Auto) 35.1 % [place] % (Auto) 7.0 % Eos % (Auto) 1.1 % Baso % (Auto) 0.8 % Absolute Neuts (auto) 5.3 (1.5-7.7) 10^3/ul Absolute Lymphs (auto) 3.3 (1.0-4.8) 10^3/ul Absolute Monos (auto) 0.7 (0-0.8) 10^3/ul Absolute Eos (auto) 0.1 (0-0.6) 10^3/ul Absolute Basos (auto) 0.1 (0-0.2) 10^3/ul Absolute Nucleated RBC 0.0 10^3/ul Nucleated RBC % 0.1 Sodium 135 (135-145) mmol/L Potassium Pending Chloride 101 (101-111) mmol/L Carbon Dioxide 26 (22-32) mmol/L Anion Gap Pending BUN 19 (6-24) mg/dL Creatinine 0.82 (0.67-1.17) mg/dL Est GFR ( Amer) 120.8 (>60) Est GFR (Non-Af Amer) 99.9 (>60) BUN/Creatinine Ratio 23.2 H (8-20) Glucose 248 H (70-100) mg/dL Calcium 9.7 (8.6-10.3) mg/dL Total Bilirubin 0.40 (0.2-1.0) mg/dL AST Pending ALT 51 (7-52) U/L Alkaline Phosphatase 53 (34-104) U/L Total Protein 7.3 (6.4-8.9) g/dL Albumin 4.2 (3.2-5.2) g/dL Globulin 3.1 (2-4) g/dL Albumin/Globulin Ratio 1.4 (1-3) Result Diagrams: 08/20/19 11:51 08/20/19 11:51 Lab Statement: Any lab studies that have been ordered have been reviewed, and results considered in the medical decision making process. - EKG 12:25 Cardiac Rate: NL - 85 BPM EKG Rhythm: Sinus Rhythm Summary of EKG Findings: An EKG at 12:25 reveals normal sinus rhythm rate of 85 BPM; T-Wave inversions in leads 3 and AVF. ED physician has reviewed and interpreted this EKG. Hypertension Course/Dx - Course Course Of Treatment: 49 y/o male w HTN p/w a synthetic hypertension. -Based on my eval today, no evidence of end organ damage from hypertension. -chemistry wnl,no MARGARITA noted, no chest pain/sob, no MCKEON, neuro exam non-focal. Recommendations for BP management: -The pt likely suffers from essential hypertension. -In the absence of a hypertensive emergency, which the pt does not have, there is no indication to aggressively treat elevated blood pressure, even when it approaches the systolic ~180 range. -The patient needs retirement management of their blood pressure. -acutely, the pt may still have an elevated pressure, but over time the medication will take effect. - patient missed his medication, will defer adding additional medications at this time. - Diagnoses Provider Diagnoses: Hypertension Discharge ED - Sign-Out/Discharge Documenting (check all that apply): Patient Departure - Discharge Plan Condition: Stable Disposition: HOME Patient Education Materials: Chronic Hypertension (ED) Forms: *Work Release Referrals: Navdeep Rushing MD [Primary Care Provider] - Additional Instructions: You were seen in the emergency department for high blood pressure. Please continue taking your blood pressure medications, follow up with your primary care doctor for blood pressure recheck in 1 week. Please follow up with your primary care doctor in next 2-3 days and return to emergency department for chest pain, trouble breathing, headaches, worsening or concerning symptoms. It was a pleasure taking care of you today. - Billing Disposition and Condition Condition: STABLE Disposition: Home - Attestation Statements Document Initiated by Scribe: Yes Documenting Scribe: Josephine Arreguin Provider For Whom Scribe is Documenting (Include Credential): Radha Villarreal MD Scribe Attestation: I, Josephine Arreguin, scribed for Radha Villarreal MD on 08/20/19 at 1311. Scribe Documentation Reviewed: Yes Provider Attestation: The documentation as recorded by the scribe, Josephine Arreguin accurately reflects the service I personally performed and the decisions made by me, Radha Villarreal MD Status of Scribe Document: Viewed
[2019-08-20 13:09] VITALS: BP 167/114
== END 2019-08-20 13:08 | disposition home or self-care (01) ==
LOC: ED 11:03
DX: I10 Essential (primary) hypertension (principal); R04.0 Epistaxis; Z79.899 Other long term (current) drug therapy; E11.9 Type 2 diabetes mellitus without complications; Z79.84 Long term (current) use of oral hypoglycemic drugs
CPT/HCPCS: 36415; 80053; 85025; 93005; 99282